=== PATIENT | female | born 1960 | race Caucasian/White ===

== ENCOUNTER → 2020-08-22 | Outpatient (CLI) | payer OTHER ==
--- NOTE | 2020-08-23 05:37 | MR ---
EXAMINATION TYPE: MR brain/orbits wo/w con DATE OF EXAM: 08/22/2020 COMPARISON: None HISTORY: Double vision. CONTRAST: Standard multiplanar, multisequence MRI departmental protocol utilizing 7 mL intravenous Gadavist maikel olinium contrast. Diffusion images show no evidence of an acute infarct. Ventricles have fairly normal size. There is n o mass effect nor mid line shift. There is no sign of intracranial hemorrhage. I do not see any signi ficant white matter disease. There are three 3 mm foci of increased signal in the anterior right tem poral lobe matter on the FLAIR images but no abnormality seen on the T2 weighted images. The clinical significance of this is not clear. There is mucosal thickening in the ethmoid maxillary sphenoid and frontal sinuses. There is no eviden ce of orbital mass. The globes are symmetric. corpus callosum is intact. Brainstem appears intact. There is normal flow-void in the anterior middle and posterior cerebral arteries. The globes are symm etric. There is no evidence of retro-orbital mass. There is normal enhancement of the venous sinuses. I see no pathologic enhancement. The sella turcica appears normal. Optic chiasm appears normal. Pitu itary stalk is in the midline. IMPRESSION: No significant abnormality of the brain. Pansinusitis.
== END | disposition home or self-care (01) ==
LOC: RADMRIMAIN 11:33
PROVIDERS: ATTEND Psychiatry & Neurology Neurology
DX: H02.401 Unspecified ptosis of right eyelid (principal); H53.2 Diplopia
CPT/HCPCS: 70543; 70553; A9585